=== PATIENT | female | born 1940 | race Caucasian/White ===

== ENCOUNTER 2017-07-28 09:45 | Inpatient (IN) ==
[2017-07-28] MEDS ORDERED: GLUCAGON 1 MG VIAL IM PRN (09:52)
[2017-07-28] MEDS ORDERED: ONDANSETRON 4 MG/2 ML VIAL IV PRN (09:52)
[2017-07-28] MEDS ORDERED: ACETAMINOPHEN 325 MG TABLET PO PRN (09:52)
[2017-07-28] MEDS ORDERED: DEXTROSE 50% 25 GM/50 ML SYRINGE IV PRN (09:52)
--- NOTE | 2017-07-28 09:58 | Internal Med History&Physical ---
Assessment and Plan (1) Palpitation Status: Acute Assessment and plan: 77-year-old female admitted to acute care * Palpitations and chest discomfort. Patient symptoms are atypical with questionable chest discomfort. She does have multiple risk factors and has family history of heart disease. She will be admitted and will do serial cardiac enzymes and EKGs. Her EKG in the office was sinus tachycardia. Will consult cardiology to evaluate. She has history of hypothyroidism but her thyroid function has been normal until recently. Will check TSH and free T4. Will give her an aspirin and start her on Lovenox * Hypertension. Blood pressure is high today. We will continue her medication * Diabetes. Will hold her metformin. * 3 of sinus tachycardia. Patient has not missed her Toprol or Cardizem. * Hyperlipidemia. Continue pravastatin * Recent sinusitis. This has improved on Z-Kristofer and Flonase along with Claritin * History of GERD. Continue omeprazole Current Visit: Yes (2) Chest discomfort Status: Acute Current Visit: Yes (3) Hyperthyroidism Status: Acute Current Visit: Yes History of Present Illness Chief complaint: Palpitations and chest and neck pressure History of present illness: Ms. Byers is a 77 year old female with history of hypertension, diabetes, sinus tachycardia, hypothyroidism in the past who presented to the office not feeling well for couple of days. She initially had a sinus infection and was started on Z-Kristofer and Flonase. For past 2 days she has noticed that she is increasingly short of breath and has felt her heart racing with palpitations. She has had a choking sensation in the lower neck and upper chest. She also has felt pressure. She denies any chest pain. She denies any nausea or vomiting. She has dyspnea on exertion and could not walk more than a few steps before getting short of breath. She denies taking any over the counter medications including decongestants. Patient has no history of smoking or alcohol use Home Medications Medication Instructions Recorded Confirmed Type Furosemide Tab [Lasix Tab] 40 mg PO DAILY 10/05/15 07/28/17 History Losartan Potassium 100 mg PO DAILY 10/05/15 07/28/17 History Metoprolol Succinate Xl [Toprol Xl] 100 mg PO BID 10/05/15 07/28/17 History Omeprazole 20 mg PO BID 10/05/15 07/28/17 History Pravastatin [Pravachol] 80 mg PO DAILY 10/05/15 07/28/17 History Propylthiouracil 50 mg PO BID 10/05/15 07/28/17 History Raloxifene HCl 60 mg PO DAILY 10/05/15 07/28/17 History metFORMIN [Glucophage] 500 mg PO BID W/MEALS 10/05/15 07/28/17 History Diltiazem Cd Cap [Cardizem CD] 120 mg PO DAILY 07/28/17 07/28/17 History Meclizine [Antivert] 25 mg PO Q4-6H PRN 07/28/17 07/28/17 History Potassium Chloride [Klor-Con 10] 40 meq PO TID 07/28/17 07/28/17 History Slow-Mag With Calcium 64-106 1 tablet PO DAILY 07/28/17 07/28/17 History Allergies Allergy/AdvReac Type Severity Reaction Status Date / Time codeine Allergy Mild Nausea, Verified 10/05/15 15:24 HALLUCINATIONS Medical,Surgical,& Family Hx - Medical History Cardio: History of: Cardiac Dysrhythmia (Sinus tachycardia), Hypertension Endocrine: History of: Diabetes Mellitus (NIDDM), Dyslipidemia, Thyroid Disorder (Hypothyroidism) Gastrointestinal: History of: GERD (History of esophageal stricture) - Surgical History HEENT Surgeries: Surgical HX of: Eye Surgery (Bilateral cataract surgery) - Family History Family History: Reports;: Family Heart Disease, Family Hypertension (Brother) - Social History Smoking Status: Never smoker Type of Drug Use: None Marital Status: Single Lives With:: Alone Functional capacity: independent ambulation 12 point system: reviewed and no additional remarkable complaints except as stated (As mentioned in HPI) Exam - Constitutional Exam: Examination: GENERAL: NAD. HEENT: PERRLA. EOMI. Mucous membranes are moist. NECK: Neck is supple. No JVD. No carotid bruit. No thyromegaly. CVS: Patient is tachycardic. S1 and S2 are normal RESPIRATORY: Lungs are clear. No rales or rhonchi. ABDOMEN: Soft and nontender. Bowel sounds are present. No hepatosplenomegaly. EXT: No edema. Peripheral pulses are present. 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 Cranial nerves II through XII are grossly intact. Motor strength is 5 over 5 both upper and lower extremities. SKIN: Warm and dry. MSK: No obvious deformity. Results - Labs CBC & BMP: 07/28/17 12:32 Lab Results: I have reviewed the past 24 hour labs
--- NOTE | 2017-07-28 10:51 | Order Completion Report ---
See report scanned to EMR
--- NOTE | 2017-07-28 10:54 | XRay Report ---
2 view chest 07/28/2017 1045 AM Indication: Shortness of breath Comparison: October 05, 2015 Findings: Cardiomediastinal contours are stable with plaquing along the arch. Lungs are clear bilaterally. . No acute osseous abnormalities. Visualized upper abdomen demonstrates no acute pathology. Impression: No acute cardiopulmonary findings PROCEDURE INTERPRETED AT [facility] DEPARTMENT OF RADIOLOGY Final Report Signed by: Edith Reeves MD
[2017-07-28] MEDS ORDERED: MECLIZINE 25 MG TABLET PO PRN (12:07)
[2017-07-28 13:05] LABS: Basophils % 0.4 % (0.0-0.8); Eosinophils # 0.1 10*3/uL (0.0-0.87); Eosinophils % 0.5 % (0.00-10.9); Hematocrit 40.7 VOL% (35.7-47.0); Hemoglobin 13.3 GM/DL (12.0-16.0); Immature Granulocytes % 0.5 %; Immature Granulocytes Absolute 0.05 #; Lymphocytes # 2.5 10*3/uL (1.4-4.0); Lymphocytes % 25.7 % (21.3-54.2); Mean Corpuscular HGB Conc 32.7 GM/DL (32-36); Mean Corpuscular Hemoglobin 29 PG (27-34); Mean Corpuscular Volume 88.9 FL (87-102); Mean Platelet Volume 10.5 FL (9.6-12.0); Monocytes # 0.5 10*3/uL (0.11-0.8); Monocytes % 5.3 % (1.7-12.7); Neutrophils # 6.4 10*3/uL (1.4-7.4); Neutrophils % 67.6 % (38.7-73.9); Platelet Count 358 T/CUMM (130-400); Red Blood Count 4.58 MC/CUMM (3.8-5.5); Red Cell Distribution Width 13.8 % (9.3-17.3); White Blood Count 9.5 T/CUMM (4-12)
[2017-07-28 13:31] LABS: Alanine Aminotransferase 15 U/L (13-56); Albumin 3.4 G/DL (3.4-5.0); Alkaline Phosphatase 34 U/L (45-117); Aspartate Amino Transferase 26 U/L (0-37); Bilirubin,Total < 0.39 MG/DL (0.2-1.0); Blood Urea Nitrogen 16 MG/DL (7-18); Calcium 9.5 MG/DL (8.5-10.1); Glucose 101 MG/DL (74-106); Osmolality,Calculated 286.8 MOS/KG (273-304); Sodium 144 MMOL/L (136-145); Total Protein 6.8 G/DL (6.4-8.3)
[2017-07-28 13:33] LABS: Troponin I Only < 0.015 NG/ML (0.00-0.045)
--- NOTE | 2017-07-28 13:33 | Cardiology Consult Note ---
<Anisha Panchal - Last Filed: 07/28/17 13:54> Assessment and Plan - Time spent with patient Time spent with patient: Greater than 30 minutes (1) Sinus tachycardia Status: Acute Assessment and plan: SEE PLAN OF CARE LISTED BELOW. Current Visit: Yes (2) Palpitation Status: Acute Assessment and plan: SEE PLAN OF CARE LISTED BELOW. Current Visit: Yes (3) Hyperlipidemia Status: Chronic Assessment and plan: SEE PLAN OF CARE LISTED BELOW. Current Visit: Yes (4) PAC (premature atrial contraction) Status: Chronic Assessment and plan: SEE PLAN OF CARE LISTED BELOW. Current Visit: Yes (5) Chest discomfort Status: Acute Assessment and plan: SEE PLAN OF CARE LISTED BELOW. Current Visit: Yes (6) Hyperthyroidism Status: Chronic Assessment and plan: SEE PLAN OF CARE LISTED BELOW. Current Visit: Yes (7) HTN (hypertension) Status: Chronic Assessment and plan: SEE PLAN OF CARE LISTED BELOW. Current Visit: Yes (8) Type 2 diabetes mellitus Status: Chronic Assessment and plan: SEE PLAN OF CARE LISTED BELOW. 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 Bess Ms. Byers is a 77 year old female without known history of coronary artery disease, not routinely followed by cardiology. Cardiac risk factors significant for: Advanced age, diabetes, hyperlipidemia, sedentary lifestyle and family history of CAD (mother, father and brother). Lifetime non-smoker. Patient has a past medical history that includes: Sinus tachycardia, palpitations, hyperthyroidism and GERD. Patient has seen Dr. Moran in the remote past and has undergone workup for palpitations. Holter monitor was done in April 2016. At that time she was noted to be mostly in normal sinus rhythm. No bradycardia was noted. Some sinus tachycardia with heart rates as high as 135. Rare PVCs and PACs. She also had nuclear cardiac stress test December 2014 which was normal. Normal to hyperdynamic LV systolic function with EF estimated to be greater than 70%. Denies ever undergoing heart catheterization. 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 Patient was directly admitted to [facility] today after being seen by Dr. Bess in clinic. Patient reports while waiting for Dr. Bess to come in the room to examine her she began experiencing dizziness, weakness, fatigue and lightheadedness. Denies heart racing/palpitations. She reports that she just felt that she needed to sit down or she was going to pass out. Thankfully, she never passed out. She did have associated shortness of breath and mild chest pressure. Her chest pressure was midsternal. No associated diaphoresis or nausea. Nonradiating. No exertional component. Patient reports when Dr. Bess came in he got an EKG and it revealed that her heart rate was in the 130s. This EKG has been scanned into [facility] and it appears that she was in sinus tachycardia. She reports that this is the first time of this there happened. She has not been experiencing chest pain or shortness of breath prior to today. She continues to clean her home on a regular basis. She can vacuum her whole house and mop without experiencing shortness of breath , dyspnea on exertion or chest pain, heaviness or tightness. She has not experienced any change in her exercise tolerance. She denies any recent fever, chills, cough, nausea, vomiting, abdominal pain, heart racing/palpitations, lower extremity swelling, orthopnea and PND. Patient has been directly admitted under family medicine's service. Cardiology was consulted to further assist with patient's symptomatology. Patient was seen and examined on the telemetry unit. She is feeling much better. No longer feeling lightheaded, weak or fatigued. Denies chest pain, pressure, heaviness or tightness. Cardiac biomarkers have been negative thus far. EKG is without ischemic changes. Reveals sinus tachycardia with PACs. I suspect that this is related to patient's sinus tachycardia she was experiencing heart rates in the 130s. Cardiac biomarkers negative thus far. EKG without ischemic changes. I will order echocardiogram. We will continue to cycle cardiac biomarkers and EKGs. Continue aspirin, beta blockade and lipid -lowering agent. Patient is now in normal sinus rhythm with heart rates in the 90s. Thyroid studies normal. Electrolytes within acceptable range. I will add magnesium to her lab draw. She is now in normal sinus rhythm with heart rates in the 90s. Continue beta-blockade. I will increase her calcium channel ginna. I will further discuss with Dr. York and await his additional recommendations. IMPRESSION AND PLAN: 1. PALPITATIONS/SINUS TACHYCARDIA - EKG reveals sinus tachycardia with PACs. Patient was worked up for this with Holter monitor April 2016 revealed some sinus tachycardia with heart rates as high as 135. Thyroid studies normal. Electrolytes within acceptable range. I will add magnesium to her lab draw. She is now in normal sinus rhythm with heart rates in the 90s. Continue beta- blockade. I will increase her calcium channel ginna. Will observe on playground monitor for overt arrhythmias. Could consider event monitor at discharge. I will further discuss with Dr. York and await his additional recommendations. 2. CHEST PRESSURE - I suspect that this is related to patient's sinus tachycardia she was experiencing heart rates in the 130s. Cardiac biomarkers negative thus far. EKG without ischemic changes. I will order echocardiogram. We will continue to cycle cardiac biomarkers and EKGs. Continue aspirin, beta blockade and lipid-lowering agent. I will further discuss with Dr. York and await his additional recommendations. 3. DIABETES - Management per attending. 4. HYPERLIPIDEMIA - Continue lipid-lowering agent. Lipid panel in the morning. 5. HYPERTHYROIDISM - Thyroid studies reviewed. Within normal limits. Defer management to attending. 6. GERD - Continue PPI. 7. HYPERTENSION - Suboptimally controlled. I have increased her calcium channel ginna as this will also assist in her sinus tachycardia. CC: Herbie Bess MD - Home Medications and Allergies Home Medications: Home Medications Medication Instructions Recorded Confirmed Type Furosemide Tab [Lasix Tab] 40 mg PO DAILY 10/05/15 07/28/17 History Losartan Potassium 100 mg PO DAILY 10/05/15 07/28/17 History Metoprolol Succinate Xl [Toprol Xl] 100 mg PO BID 10/05/15 07/28/17 History Omeprazole 20 mg PO BID 10/05/15 07/28/17 History Pravastatin [Pravachol] 80 mg PO DAILY 10/05/15 07/28/17 History Propylthiouracil 50 mg PO BID 10/05/15 07/28/17 History Raloxifene HCl 60 mg PO DAILY 10/05/15 07/28/17 History metFORMIN [Glucophage] 500 mg PO BID W/MEALS 10/05/15 07/28/17 History Diltiazem Cd Cap [Cardizem CD] 120 mg PO DAILY 07/28/17 07/28/17 History Meclizine [Antivert] 25 mg PO Q4-6H PRN 07/28/17 07/28/17 History Potassium Chloride [Klor-Con 10] 40 meq PO TID 07/28/17 07/28/17 History Slow-Mag With Calcium 64-106 1 tablet PO DAILY 07/28/17 07/28/17 History Allergies/Adverse Reactions: Allergies Allergy/AdvReac Type Severity Reaction Status Date / Time codeine Allergy Mild Nausea, Verified 10/05/15 15:24 HALLUCINATIONS - Constitutional Constitutional: Present: as per HPI, fatigue, lethargy, malaise, weakness. Absent: chills, excessive sweating, fever(s), headache(s), weight gain, weight loss - Cardiovascular Cardiovascular: Present: as per HPI, dyspnea, lightheadedness, other (Chest pressure). Absent: claudication, diaphoresis, dyspnea on exertion, edema, radiating jaw, neck or arm pain, orthopnea, palpitations, PND - Respiratory Respiratory: Present: as per HPI, dyspnea. Absent: cough, hemoptysis, dyspnea on exertion, wheezing, snoring, pain on inspiration, change in phlegm color - Gastrointestinal Gastrointestinal: Present: as per HPI. Absent: abdominal pain, change in bowel habits, coffee ground emesis, hematemesis, hematochezia, melena, nausea, vomiting - Psychiatric Psychiatric: Present: as per HPI. Absent: anxiety, depression, panic attacks - Hematologic/Lymphatic Hematologic/Lymphatic: Present: as per HPI. Absent: easy bleeding, easy bruising, lymphadenopathy Medical,Surgical,& Family Hx - Medical History Cardio: History of: Hypertension, Cardiovascular Problems (Sinus tach) Endocrine: History of: Diabetes Mellitus (NIDDM), Dyslipidemia, Thyroid Disorder (Hyperthyroidism) Gastrointestinal: History of: GERD (History of esophageal stricture) Musculoskeletal: History of: Osteoporosis - Surgical History HEENT Surgeries: Surgical HX of: Eye Surgery (Bilateral cataract surgery) - Family History Family History: Reports;: Family Heart Disease, Family Hypertension (Brother) - Social History Smoking Status: Never smoker Type of Drug Use: None Functional capacity: independent ambulation Physical Examination Vital Signs Pulse Resp BP Pulse Ox 108 H 18 161/85 93 L 07/28/17 11:07 07/28/17 11:07 07/28/17 11:07/28/17 11:07 Exam: General: Appears well with no apparent distress. Pleasant and cooperative. Appears comfortable. HEENT: PERRL, normocephalic, atraumatic. Mucous membranes moist. No jaundice noted. Conjunctiva moist and clear, sclerae anicteric Neck: No JVD/HJR, no thyromegaly or lymphadenopathy noted. No carotid bruit appreciated Cardiac: Regular rate and rhythm. No murmur rub or gallop. Lungs: Clear to auscultation without accessory muscle use to assist the respiratory pattern. Not requiring oxygen. Abdomen: Soft, bowel sounds normoactive. Nontender and nondistended. No abdominal bruit or thrill noted. No masses noted. Extremities: No clubbing, cyanosis noted. No edema noted. Upper extremity pulses 2+. Lower extremity pulses 2+. Capillary refill less than 3 seconds. Skin: No unusual lesions or rashes. No skin breakdown appreciated. Neuro: Awake, alert and oriented 3. Moves all extremities well without hemiparesis or paralysis. No essential tremor is appreciated. Result/EKG - Labs CBC & BMP: 07/28/17 12:32 07/28/17 12:31 Lab Results: I have reviewed the past 24 hour labs Labs: Laboratory Results - last 24 hr 07/28/17 07/28/17 11:51 12:32 WBC 9.5 RBC 4.58 Hgb 13.3 Hct 40.7 MCV 88.9 MCH 29 MCHC 32.7 RDW 13.8 Plt Count 358 MPV 10.5 Neut % (Auto) 67.6 Lymph % (Auto) 25.7 [place] % (Auto) 5.3 Eos % (Auto) 0.5 Baso % (Auto) 0.4 Neut # (Auto) 6.4 Lymph # (Auto) 2.5 [place] # (Auto) 0.5 Eos # (Auto) 0.1 Baso # (Auto) 0.0 Immature Gran % 0.5 Nucleated RBC % 0.0 Immature Gran # 0.05 Nucleated RBCs # 0.00 Immature Plt Fraction 0.0 POC Glucose 116 H - EKG EKG results: interpreted by me, sinus rhythm EKG shows: tachycardia (PACs) <Graham York - Last Filed: 07/28/17 17:59> History of Present Illness - Consult Narrative History of present illness: Patient personally interviewed and examined by me and chart reviewed. Discussed this patient's case with Anisha Panchal BINGO USHER. I agree with the evaluation assessment and plans. Ms. Byers is a 77 year old female has a history of sinus tachycardia previously been to the right stent today. She states she done well up until today. Her rhythm certainly looks sinus. Is better now. She is on a significant dose of metoprolol succinate. We have increased her diltiazem. I think if her diltiazem with the beta-ginna does not work certainly in the addition of by systolic with the metoprolol may manage her brace and may very well be able to shift to a different beta-ginna. She has a Mountain Dew at her bedside today and I warned her about the caffeine especially high caffeinated products such as this. He states at home she just buying drinks tea no coffee. She is a little evasive about soft drinks though. I get the impression she does not really consume soft rates that much at home. She was taking something specifically nasal spray for sinus congestion issues recently but denies any decongestant use. The patient's echocardiogram is really unremarkable with ejection fraction 50-55 %. Her cardiac enzymes or normal. Her ECG without acute ischemic changes. At this time we will monitor the patient with medication changes. Further recommendations to follow as needed. CC: Herbie Bess MD Physical Examination Vital Signs Pulse Resp BP Pulse Ox 108 H 18 161/85 93 L 07/28/17 11:07 07/28/17 11:07 07/28/17 11:07 07/28/17 11:07 Result/EKG - Labs CBC & BMP: 07/28/17 12:32 07/28/17 12:31 Labs: Laboratory Results - last 24 hr 07/28/17 07/28/17 07/28/17 11:51 12:30 12:30 WBC RBC Hgb Hct MCV MCH MCHC RDW Plt Count MPV Neut % (Auto) Lymph % (Auto) [place] % (Auto) Eos % (Auto) Baso % (Auto) Neut # (Auto) Lymph # (Auto) [place] # (Auto) Eos # (Auto) Baso # (Auto) Immature Gran % Nucleated RBC % Immature Gran # Nucleated RBCs # Immature Plt Fraction Sodium Potassium Chloride Carbon Dioxide Anion Gap BUN Creatinine GFR Calculation BUN/Creatinine Ratio Glucose POC Glucose 116 H Calculated Osmolality Calcium Magnesium 2.0 Total Bilirubin AST ALT Alkaline Phosphatase Total Creatine Kinase CK-MB (CK-2) Troponin I Total Protein Albumin Globulin Albumin/Globulin Ratio Free T4 0.84 TSH 3rd Generation 1.230 07/28/17 07/28/17 07/28/17 12:31 12:32 12:32 WBC 9.5 RBC 4.58 Hgb 13.3 Hct 40.7 MCV 88.9 MCH 29 MCHC 32.7 RDW 13.8 Plt Count 358 MPV 10.5 Neut % (Auto) 67.6 Lymph % (Auto) 25.7 [place] % (Auto) 5.3 Eos % (Auto) 0.5 Baso % (Auto) 0.4 Neut # (Auto) 6.4 Lymph # (Auto) 2.5 [place] # (Auto) 0.5 Eos # (Auto) 0.1 Baso # (Auto) 0.0 Immature Gran % 0.5 Nucleated RBC % 0.0 Immature Gran # 0.05 Nucleated RBCs # 0.00 Immature Plt Fraction 0.0 Sodium 144 Potassium 5.0 Chloride 109 H Carbon Dioxide 28 Anion Gap 12.0 BUN 16 Creatinine 1.20 H GFR Calculation 43 BUN/Creatinine Ratio 13.00 Glucose 101 POC Glucose Calculated Osmolality 286.8 Calcium 9.5 Magnesium Total Bilirubin < 0.39 AST 26 ALT 15 Alkaline Phosphatase 34 L Total Creatine Kinase 48 CK-MB (CK-2) < 1.0 Troponin I < 0.015 Total Protein 6.8 Albumin 3.4 Globulin 3.4 Albumin/Globulin Ratio 1.0 L Free T4 TSH 3rd Generation 07/28/17 07/28/17 16:31 16:58 WBC RBC Hgb Hct MCV MCH MCHC RDW Plt Count MPV Neut % (Auto) Lymph % (Auto) [place] % (Auto) Eos % (Auto) Baso % (Auto) Neut # (Auto) Lymph # (Auto) [place] # (Auto) Eos # (Auto) Baso # (Auto) Immature Gran % Nucleated RBC % Immature Gran # Nucleated RBCs # Immature Plt Fraction Sodium Potassium Chloride Carbon Dioxide Anion Gap BUN Creatinine GFR Calculation BUN/Creatinine Ratio Glucose POC Glucose 150 H Calculated Osmolality Calcium Magnesium Total Bilirubin AST ALT Alkaline Phosphatase Total Creatine Kinase 46 CK-MB (CK-2) < 1.0 Troponin I < 0.015 Total Protein Albumin Globulin Albumin/Globulin Ratio Free T4 TSH 3rd Generation
[2017-07-28 13:58] LABS: Free T4 (Free Thyroxine) 0.84 NG/DL (0.76-1.46); Thyroid Stimulating Hormone 1.23 uIU/ml (0.358-3.74)
[2017-07-28] MEDS ORDERED: DILTIAZEM 60 MG TABLET PO ONE (14:23)
[2017-07-28] MEDS: ENOXAPARIN 40 MG/0.4 ML SYRINGE SUBCUT SCH (15:30)
[2017-07-28] MEDS: ASPIRIN CHEW 81 MG TABLET PO SCH (15:30)
[2017-07-28] MEDS: POTASSIUM CHLORIDE 10 MEQ TABLET PO SCH ×2 (15:30→21:53)
--- NOTE | 2017-07-28 16:25 | Order Completion Report ---
See report scanned to EMR
[2017-07-28 17:33] LABS: Troponin I Only < 0.015 NG/ML (0.00-0.045)
[2017-07-28] MEDS: SODIUM CHLORIDE 0.45% 1,000 ML IV SCH (18:49)
[2017-07-28] MEDS ORDERED: NON-FORMULARY MEDICATION (Omeprazole [Omeprazole] 20 MG) PO SCH (21:00)
[2017-07-28] MEDS: PROPYLTHIOURACIL 50 MG TABLET PO SCH (21:53)
[2017-07-28] MEDS: METOPROLOL SUCCINATE XL 100 MG TABLET PO SCH (21:53)
[2017-07-28] MEDS: DOCUSATE SODIUM 100 MG CAPSULE PO SCH (21:53)
[2017-07-29] MEDS: SODIUM CHLORIDE 0.45% 1,000 ML IV SCH ×3 (03:53→20:27)
[2017-07-29 05:15] LABS: Basophils # 0.1 10*3/uL (0.0-0.2); Basophils % 0.7 % (0.0-0.8); Eosinophils # 0.2 10*3/uL (0.0-0.87); Eosinophils % 2.5 % (0.00-10.9); Hematocrit 37.8 VOL% (35.7-47.0); Hemoglobin 11.8 GM/DL (12.0-16.0); Immature Granulocytes % 0.3 %; Immature Granulocytes Absolute 0.02 #; Lymphocytes # 3.6 10*3/uL (1.4-4.0); Lymphocytes % 50.1 % (21.3-54.2); Mean Corpuscular HGB Conc 31.2 GM/DL (32-36); Mean Corpuscular Hemoglobin 29 PG (27-34); Mean Corpuscular Volume 94.3 FL (87-102); Mean Platelet Volume 10.8 FL (9.6-12.0); Monocytes # 0.5 10*3/uL (0.11-0.8); Monocytes % 6.9 % (1.7-12.7); Neutrophils # 2.8 10*3/uL (1.4-7.4); Neutrophils % 39.5 % (38.7-73.9); Platelet Count 279 T/CUMM (130-400); Red Blood Count 4.01 MC/CUMM (3.8-5.5); Red Cell Distribution Width 14.1 % (9.3-17.3); White Blood Count 7.1 T/CUMM (4-12)
[2017-07-29 05:58] LABS: Blood Urea Nitrogen 15 MG/DL (7-18); Calcium 8.7 MG/DL (8.5-10.1); Glucose 98 MG/DL (74-106); Osmolality,Calculated 290.6 MOS/KG (273-304); Potassium 5.2 MMOL/L (3.5-5.1); Sodium 146 MMOL/L (136-145); Troponin I Only < 0.015 NG/ML (0.00-0.045)
[2017-07-29 06:23] LABS: Risk Ratio 3.19
--- NOTE | 2017-07-29 06:59 | Family Practice Progress Note ---
Family Practice - PN: Subj Interval history: Patient 77-year-old white female admitted with fatigue and perceived palpitations. She was found to have sinus tachycardia with heart rate around 130 bpm. Patient still has sinus tachycardia this morning. She states her shortness of breath has resolved and she feels much better this morning. Patient's magnesium and TSH were normal on admission. Her cardiac isoenzymes have been negative thus far. Exam (Progress Note) - Constitutional Vitals: Period Temp Pulse Resp BP Sys/Cisneros Pulse Ox Last 24 Hr 97.3 F-98.8 F 76-108 16-20 140-185/65-96 92-96 Exam: Objective a pleasant white female no acute distress. She is lying flat in bed and has no dyspnea. Cardiovascular: Exam reveals a rapid regular rhythm without murmurs or gallops. Respiratory: Lungs clear to auscultation bilaterally. Abdomen: Abdomen soft and nontender to palpation. Results - Labs CBC & BMP: 07/29/17 04:55 07/29/17 04:55 Lab Results: I have reviewed the past 24 hour labs Assessment and Plan (1) Palpitation Status: Acute Assessment and plan: 07/29/2017: Monitor reveals sinus tachycardia. Her workup is in progress per Current Visit: Yes
[2017-07-29] MEDS: PRAVASTATIN 40 MG TABLET PO SCH (08:49)
[2017-07-29] MEDS: RALOXIFENE 60 MG TABLET PO SCH (08:49)
[2017-07-29] MEDS: DOCUSATE SODIUM 100 MG CAPSULE PO SCH ×2 (08:49→20:21)
[2017-07-29] MEDS: DILTIAZEM CD 240 MG CAPSULE PO SCH (08:49)
--- NOTE | 2017-07-29 08:49 | Order Completion Report ---
See report scanned to EMR
[2017-07-29] MEDS: PANTOPRAZOLE 40 MG TABLET PO SCH (08:50)
[2017-07-29] MEDS: METOPROLOL SUCCINATE XL 100 MG TABLET PO SCH ×2 (08:50→20:21)
[2017-07-29] MEDS: FUROSEMIDE 40 MG TABLET PO SCH (08:50)
[2017-07-29] MEDS: ASPIRIN CHEW 81 MG TABLET PO SCH (08:50)
[2017-07-29] MEDS: PROPYLTHIOURACIL 50 MG TABLET PO SCH ×2 (08:50→20:21)
[2017-07-29] MEDS: POTASSIUM CHLORIDE 10 MEQ TABLET PO SCH (08:53)
[2017-07-29] MEDS: LOSARTAN 50 MG TABLET PO SCH (08:53)
[2017-07-29] MEDS: [UNRECOGNIZED DRUG - OTHER] PO SCH (08:56)
[2017-07-29] MEDS ORDERED: DILTIAZEM CD 120 MG CAPSULE PO SCH (09:00)
--- NOTE | 2017-07-29 09:07 | Cardiology Progress Note ---
Assessment and Plan - Time spent with patient Time spent with patient: (Potassium is up some.) (1) HTN (hypertension) Status: Chronic Assessment and plan: Blood pressure still remains elevated some. She is receiving her diltiazem now and this may help. Not blood pressure medication may need to be adjusted. Current Visit: Yes (2) Sinus tachycardia Status: Acute Assessment and plan: A chronic recurrent issue but this is much better controlled today. Current Visit: Yes (3) Palpitation Status: Acute Assessment and plan: This is resolved. Current Visit: Yes (4) Chest discomfort Status: Acute Assessment and plan: This is resolved. This certainly is not cardiac. EKGs do not reveal ischemic events and her troponins are nondetectable. Prior related more to palpitations and increased heart rate. Current Visit: Yes Cardiology - PN: Subj Interval history: Patient felt much better today. Not having shortness of breath. Her heart rates are little better with holding her ECG of 86 and telemetry this morning reveals heart rate in the 80s. At times she has heart rate in the 90s. We will see how she does today. Her blood pressure is elevated some if she is receiving her diltiazem from may be the first time this morning. We will monitor this. Certainly adjustments may have to be made. She is doing well in the morning though she could go home with follow-up as an outpatient. She has no new complaints today and is that is noticed just feels better in general. Her lab work including her CBC and chemistries are unremarkable. Her potassium is up at 5.2. It was 5.0 yesterday. We may can decrease her potassium intake. Exam (Progress Note) - Constitutional Vitals: Period Temp Pulse Resp BP Sys/Cisneros Pulse Ox Last 24 Hr 97.3 F-98.8 F 76-108 16-20 140-185/65-96 92-96 Exam: General appearance: Alert cooperative no distress. She seems to feel better today. HEENT: Atraumatic and normocephalic. PERRLA. Neck: Supple trachea midline. No JVD or bruits. Lungs: Clear posteriorly and anteriorly bilaterally without rales rhonchi wheezes. Cardiovascular regular rate and rhythm with normal heart rate without murmur gallop or rub on auscultation. Abdomen: Soft nontender with normal bowel sounds. Extremities no clubbing edema. Neurologic alert cooperative without deficits. Psychiatric: Cognitive function is grossly intact. Skin/dermatologic: No gross rashes or abnormalities. Result/EKG - Labs CBC & BMP: 07/29/17 04:55 07/29/17 04:55 Lab Results: I have reviewed the past 24 hour labs Labs: Laboratory Results - last 24 hr 07/28/17 07/28/17 07/28/17 11:51 12:30 12:30 WBC RBC Hgb Hct MCV MCH MCHC RDW Plt Count MPV Neut % (Auto) Lymph % (Auto) [place] % (Auto) Eos % (Auto) Baso % (Auto) Neut # (Auto) Lymph # (Auto) [place] # (Auto) Eos # (Auto) Baso # (Auto) Immature Gran % Nucleated RBC % Immature Gran # Nucleated RBCs # Immature Plt Fraction Sodium Potassium Chloride Carbon Dioxide Anion Gap BUN Creatinine GFR Calculation BUN/Creatinine Ratio Glucose POC Glucose 116 H Calculated Osmolality Calcium Magnesium 2.0 Total Bilirubin AST ALT Alkaline Phosphatase Total Creatine Kinase CK-MB (CK-2) Troponin I Total Protein Albumin Globulin Albumin/Globulin Ratio Triglycerides Cholesterol LDL Cholesterol VLDL Cholesterol HDL Cholesterol Heart Disease Risk Ratio Free T4 0.84 TSH 3rd Generation 1.230 07/28/17 07/28/17 07/28/17 12:31 12:32 12:32 WBC 9.5 RBC 4.58 Hgb 13.3 Hct 40.7 MCV 88.9 MCH 29 MCHC 32.7 RDW 13.8 Plt Count 358 MPV 10.5 Neut % (Auto) 67.6 Lymph % (Auto) 25.7 [place] % (Auto) 5.3 Eos % (Auto) 0.5 Baso % (Auto) 0.4 Neut # (Auto) 6.4 Lymph # (Auto) 2.5 [place] # (Auto) 0.5 Eos # (Auto) 0.1 Baso # (Auto) 0.0 Immature Gran % 0.5 Nucleated RBC % 0.0 Immature Gran # 0.05 Nucleated RBCs # 0.00 Immature Plt Fraction 0.0 Sodium 144 Potassium 5.0 Chloride 109 H Carbon Dioxide 28 Anion Gap 12.0 BUN 16 Creatinine 1.20 H GFR Calculation 43 BUN/Creatinine Ratio 13.00 Glucose 101 POC Glucose Calculated Osmolality 286.8 Calcium 9.5 Magnesium Total Bilirubin < 0.39 AST 26 ALT 15 Alkaline Phosphatase 34 L Total Creatine Kinase 48 CK-MB (CK-2) < 1.0 Troponin I < 0.015 Total Protein 6.8 Albumin 3.4 Globulin 3.4 Albumin/Globulin Ratio 1.0 L Triglycerides Cholesterol LDL Cholesterol VLDL Cholesterol HDL Cholesterol Heart Disease Risk Ratio Free T4 TSH 3rd Generation 07/28/17 07/28/17 07/28/17 16:31 16:58 19:38 WBC RBC Hgb Hct MCV MCH MCHC RDW Plt Count MPV Neut % (Auto) Lymph % (Auto) [place] % (Auto) Eos % (Auto) Baso % (Auto) Neut # (Auto) Lymph # (Auto) [place] # (Auto) Eos # (Auto) Baso # (Auto) Immature Gran % Nucleated RBC % Immature Gran # Nucleated RBCs # Immature Plt Fraction Sodium Potassium Chloride Carbon Dioxide Anion Gap BUN Creatinine GFR Calculation BUN/Creatinine Ratio Glucose POC Glucose 150 H 188 H Calculated Osmolality Calcium Magnesium Total Bilirubin AST ALT Alkaline Phosphatase Total Creatine Kinase 46 CK-MB (CK-2) < 1.0 Troponin I < 0.015 Total Protein Albumin Globulin Albumin/Globulin Ratio Triglycerides Cholesterol LDL Cholesterol VLDL Cholesterol HDL Cholesterol Heart Disease Risk Ratio Free T4 TSH 3rd Generation 07/29/17 07/29/17 07/29/17 04:55 04:55 04:55 WBC 7.1 RBC 4.01 Hgb 11.8 L Hct 37.8 MCV 94.3 MCH 29 MCHC 31.2 L RDW 14.1 Plt Count 279 D MPV 10.8 Neut % (Auto) 39.5 Lymph % (Auto) 50.1 [place] % (Auto) 6.9 Eos % (Auto) 2.5 Baso % (Auto) 0.7 Neut # (Auto) 2.8 Lymph # (Auto) 3.6 [place] # (Auto) 0.5 Eos # (Auto) 0.2 Baso # (Auto) 0.1 Immature Gran % 0.3 Nucleated RBC % 0.0 Immature Gran # 0.02 Nucleated RBCs # 0.00 Immature Plt Fraction Sodium 146 H Potassium 5.2 H Chloride 113 H Carbon Dioxide 27 Anion Gap 11.2 BUN 15 Creatinine 1.20 H GFR Calculation 43 BUN/Creatinine Ratio 12.00 Glucose 98 POC Glucose Calculated Osmolality 290.6 Calcium 8.7 Magnesium Total Bilirubin AST ALT Alkaline Phosphatase Total Creatine Kinase 54 CK-MB (CK-2) 1.0 Troponin I < 0.015 Total Protein Albumin Globulin Albumin/Globulin Ratio Triglycerides 120 Cholesterol 172 LDL Cholesterol 95.0 VLDL Cholesterol 24.0 HDL Cholesterol 54 Heart Disease Risk Ratio 3.19 Free T4 TSH 3rd Generation 07/29/17 07/29/17 04:55 07:55 WBC RBC Hgb Hct MCV MCH MCHC RDW Plt Count MPV Neut % (Auto) Lymph % (Auto) [place] % (Auto) Eos % (Auto) Baso % (Auto) Neut # (Auto) Lymph # (Auto) [place] # (Auto) Eos # (Auto) Baso # (Auto) Immature Gran % Nucleated RBC % Immature Gran # Nucleated RBCs # Immature Plt Fraction Sodium Potassium Chloride Carbon Dioxide Anion Gap BUN Creatinine GFR Calculation BUN/Creatinine Ratio Glucose POC Glucose 105 Calculated Osmolality Calcium Magnesium 2.1 Total Bilirubin AST ALT Alkaline Phosphatase Total Creatine Kinase CK-MB (CK-2) Troponin I Total Protein Albumin Globulin Albumin/Globulin Ratio Triglycerides Cholesterol LDL Cholesterol VLDL Cholesterol HDL Cholesterol Heart Disease Risk Ratio Free T4 TSH 3rd Generation - Impressions Impressions: ECG was sinus rhythm with a heart rate of 86. Telemetry reveals better heart rate control.
[2017-07-29] MEDS: ENOXAPARIN 40 MG/0.4 ML SYRINGE SUBCUT SCH (14:30)
[2017-07-29] MEDS: POTASSIUM CHLORIDE 20 MEQ TABLET PO SCH (20:21)
[2017-07-30] MEDS: SODIUM CHLORIDE 0.45% 1,000 ML IV SCH (02:29)
[2017-07-30 05:10] LABS: Basophils % 0.5 % (0.0-0.8); Eosinophils # 0.3 10*3/uL (0.0-0.87); Eosinophils % 3.1 % (0.00-10.9); Hematocrit 36.5 VOL% (35.7-47.0); Hemoglobin 11.9 GM/DL (12.0-16.0); Immature Granulocytes % 0.2 %; Immature Granulocytes Absolute 0.02 #; Lymphocytes # 4.1 10*3/uL (1.4-4.0); Lymphocytes % 48.1 % (21.3-54.2); Mean Corpuscular HGB Conc 32.6 GM/DL (32-36); Mean Corpuscular Hemoglobin 29 PG (27-34); Mean Corpuscular Volume 88.6 FL (87-102); Mean Platelet Volume 10.3 FL (9.6-12.0); Monocytes # 0.6 10*3/uL (0.11-0.8); Monocytes % 6.9 % (1.7-12.7); Neutrophils # 3.5 10*3/uL (1.4-7.4); Neutrophils % 41.2 % (38.7-73.9); Platelet Count 328 T/CUMM (130-400); Red Blood Count 4.12 MC/CUMM (3.8-5.5); White Blood Count 8.6 T/CUMM (4-12)
[2017-07-30 05:38] LABS: Calcium 8.6 MG/DL (8.5-10.1); Magnesium 1.9 MG/DL (1.8-2.4); Osmolality,Calculated 287.8 MOS/KG (273-304); Potassium 4.3 MMOL/L (3.5-5.1)
--- NOTE | 2017-07-30 07:35 | Discharge Summary ---
Hospital Course - Hospital Course Hospital Course: Patient is having a white female admitted to the hospital with tachycardia. Patient was found to have sinus tachycardia. Cardiac isoenzymes remained negative and her thyroid studies magnesium were normal. She was seen in consultation by cardiology and patient had no further tachycardia. Her medications were amended somewhat and she has had no further tachycardia on the monitor. Patient is feeling back to her normal and we discharged home today to follow-up with cardiology in a week or so. She probably needs a 30 day monitor or a link monitor Diagnosis - Discharge Diagnosis (1) Palpitation Status: Acute Discharge Plan - Discharge Data Disposition: Disch To Home/Self Care Condition at Discharge: Stable Discharge Diet: advance to your usual diet Activity: resume usual activities as tolerated Hygiene: no restrictions Weight Bearing at Discharge: full weight bearing Contact your physician if you experience:: Shortness of breath - Discharge Medications New Aspirin Chew Tab 324 mg PO DAILY tablet Diltiazem Cd Cap [Cardizem CD] 240 mg PO DAILY capsule Acetaminophen Tab [Tylenol Tab] 650 mg PO Q6H PRN tablet PRN Reason: Fever > 100.4 Or Headache Continue Propylthiouracil 50 mg PO BID Metoprolol Succinate Xl [Toprol Xl] 100 mg PO BID metFORMIN [Glucophage] 500 mg PO BID W/MEALS Pravastatin [Pravachol] 80 mg PO DAILY Omeprazole 20 mg PO BID Losartan Potassium 100 mg PO DAILY Furosemide Tab [Lasix Tab] 40 mg PO DAILY Raloxifene HCl 60 mg PO DAILY Potassium Chloride [Klor-Con 10] 40 meq PO TID Slow-Mag With Calcium 64-106 1 tablet PO DAILY Meclizine [Antivert] 25 mg PO Q4-6H PRN PRN Reason: Dizziness Discontinued Diltiazem Cd Cap [Cardizem CD] 120 mg PO DAILY - Follow Up or Referral Follow Up: Herbie Bess MD [Primary Care Provider] - 2 Weeks - Forms/Instructions Exam - Constitutional Vitals: Period Temp Pulse Resp BP Sys/Cisneros Pulse Ox Last 24 Hr 97.5 F-98.7 F 70-85 16-18 129-181/59-93 94-98 Exam: Objective a pleasant white female no acute distress. She is lying flat in bed and has no dyspnea. Patient is in normal sinus rhythm on the monitor Cardiovascular: Exam reveals a rapid regular rhythm without murmurs or gallops. Respiratory: Lungs clear to auscultation bilaterally. Abdomen: Abdomen soft and nontender to palpation. Discharge Results Procedures and tests throughout hospitalization: Pending Orders 07/31/17 04:00 BMP w/ Mg [Basic Metabolic Panel w/Mg] IN AM CBC [Comp Blood Count Auto Diff] IN AM Labs on day of discharge: Labs from last 24 hours 07/30/17 07/30/17 07/29/17 04:48 04:48 19:18 WBC 8.6 RBC 4.12 Hgb 11.9 L Hct 36.5 MCV 88.6 MCH 29 MCHC 32.6 RDW 14.0 Plt Count 328 MPV 10.3 Neut % (Auto) 41.2 Lymph % (Auto) 48.1 [place] % (Auto) 6.9 Eos % (Auto) 3.1 Baso % (Auto) 0.5 Neut # (Auto) 3.5 Lymph # (Auto) 4.1 H [place] # (Auto) 0.6 Eos # (Auto) 0.3 Baso # (Auto) 0.0 Immature Gran % 0.2 Nucleated RBC % 0.0 Immature Gran # 0.02 Nucleated RBCs # 0.00 Immature Plt Fraction 0.0 D-Dimer, Quantitative Sodium 144 Potassium 4.3 Chloride 111 H Carbon Dioxide 30 Anion Gap 7.3 BUN 18 Creatinine 1.30 H GFR Calculation 40 BUN/Creatinine Ratio 13.00 Glucose 100 POC Glucose 194 H Calculated Osmolality 287.8 Calcium 8.6 Magnesium 1.9 07/29/17 07/29/17 07/29/17 17:11 12:07 08:56 WBC RBC Hgb Hct MCV MCH MCHC RDW Plt Count MPV Neut % (Auto) Lymph % (Auto) [place] % (Auto) Eos % (Auto) Baso % (Auto) Neut # (Auto) Lymph # (Auto) [place] # (Auto) Eos # (Auto) Baso # (Auto) Immature Gran % Nucleated RBC % Immature Gran # Nucleated RBCs # Immature Plt Fraction D-Dimer, Quantitative <= 0.5 Sodium Potassium Chloride Carbon Dioxide Anion Gap BUN Creatinine GFR Calculation BUN/Creatinine Ratio Glucose POC Glucose 190 H 124 H Calculated Osmolality Calcium Magnesium 07/29/17 07:55 WBC RBC Hgb Hct MCV MCH MCHC RDW Plt Count MPV Neut % (Auto) Lymph % (Auto) [place] % (Auto) Eos % (Auto) Baso % (Auto) Neut # (Auto) Lymph # (Auto) [place] # (Auto) Eos # (Auto) Baso # (Auto) Immature Gran % Nucleated RBC % Immature Gran # Nucleated RBCs # Immature Plt Fraction D-Dimer, Quantitative Sodium Potassium Chloride Carbon Dioxide Anion Gap BUN Creatinine GFR Calculation BUN/Creatinine Ratio Glucose POC Glucose 105 Calculated Osmolality Calcium Magnesium Laboratory studies on 07/30/2017 are unremarkable. DS: Provider Date of admission: 07/28/17 09:52 Primary care physician: Herbie Bess MD Attending physician on admission: Herbie Bess MD Consults: 07/28/17 09:52 Consult to Case Mgmt/Social Srvs [CONS] Routine Reason for Case Mgmt/Social Srvs: Discharge Planning 07/28/17 09:57 Consult to Physician [CONS] Routine Comment: Palpitations and chest pressure Consulting Provider: Cardiology - [facility] Consult to Specialist Group: Cardiology Person Notified: Gail Date Notified: 07/28/17 Time Notified: 11:05 07/28/17 11:12 Consult to Pastoral Services [CONS] Routine Comment: Pastoral Screen: Request [employer] Visit Pastoral Screen Source of Request: Patient Discharging clinician: Fermín Gomez MD Expected date of discharge: 07/30/17
--- NOTE | 2017-07-30 07:51 | Order Completion Report ---
See report scanned to EMR
[2017-07-30 08:37] VITALS: BP 153/74
[2017-07-30] MEDS: LOSARTAN 50 MG TABLET PO SCH (08:53)
[2017-07-30] MEDS: RALOXIFENE 60 MG TABLET PO SCH (08:54)
[2017-07-30] MEDS: POTASSIUM CHLORIDE 20 MEQ TABLET PO SCH (08:54)
[2017-07-30] MEDS: ASPIRIN CHEW 81 MG TABLET PO SCH (08:54)
[2017-07-30] MEDS: DOCUSATE SODIUM 100 MG CAPSULE PO SCH (08:54)
[2017-07-30] MEDS: DILTIAZEM CD 240 MG CAPSULE PO SCH (08:54)
[2017-07-30] MEDS: PANTOPRAZOLE 40 MG TABLET PO SCH (08:54)
[2017-07-30] MEDS: PROPYLTHIOURACIL 50 MG TABLET PO SCH (08:54)
[2017-07-30] MEDS: PRAVASTATIN 40 MG TABLET PO SCH (08:54)
[2017-07-30] MEDS: METOPROLOL SUCCINATE XL 100 MG TABLET PO SCH (08:54)
[2017-07-30] MEDS: FUROSEMIDE 40 MG TABLET PO SCH (08:54)
[2017-07-30] MEDS: [UNRECOGNIZED DRUG - OTHER] PO SCH (08:55)
== END 2017-07-30 10:15 | disposition home or self-care (01) | DRG 310 ==
LOC: N.TELEN 10:18
PROVIDERS: ADMIT Internal Medicine; ATTEND Internal Medicine

== ENCOUNTER 2019-01-03 16:40 | Inpatient (IN) ==
[2019-01-03] MEDS ORDERED: PANTOPRAZOLE 40 MG VIAL IV STA (17:07)
[2019-01-03] MEDS ORDERED: ONDANSETRON 4 MG/2 ML VIAL IV STA (17:07)
[2019-01-03] MEDS ORDERED: LOPERAMIDE 2 MG CAPSULE PO STA (17:07)
[2019-01-03] MEDS ORDERED: METOCLOPRAMIDE 10 MG/2 ML VIAL IV STA (17:07)
[2019-01-03] MEDS ORDERED: SODIUM CHLORIDE 0.9% 1,000 ML IV STA (17:07)
[2019-01-03 18:13] LABS: Basophils # 0.1 10*3/uL (0.0-0.2); Basophils % 0.4 % (0.0-0.8); Eosinophils # 0.1 10*3/uL (0.0-0.87); Eosinophils % 0.6 % (0.00-10.9); Hematocrit 43.7 VOL% (35.7-47.0); Hemoglobin 13.3 GM/DL (12.0-16.0); Immature Granulocytes % 1.3 %; Immature Granulocytes Absolute 0.22 #; Lymphocytes # 3.2 10*3/uL (1.4-4.0); Lymphocytes % 18.5 % (21.3-54.2); Mean Corpuscular HGB Conc 30.4 GM/DL (32-36); Mean Corpuscular Hemoglobin 28 PG (27-34); Mean Corpuscular Volume 92.2 FL (87-102); Monocytes # 0.7 10*3/uL (0.11-0.8); Monocytes % 4.1 % (1.7-12.7); Neutrophils # 12.8 10*3/uL (1.4-7.4); Neutrophils % 75.1 % (38.7-73.9); Platelet Count 341 T/CUMM (130-400); Red Blood Count 4.74 MC/CUMM (3.8-5.5); Red Cell Distribution Width 13.9 % (9.3-17.3); White Blood Count 17.1 T/CUMM (4-12)
[2019-01-03] MEDS ORDERED: ATROPINE 1 MG/10 ML SYRINGE ONE (18:15)
[2019-01-03] MEDS ORDERED: ATROPINE 1 MG/10 ML SYRINGE IV STA (18:15)
[2019-01-03 18:38] LABS: Alanine Aminotransferase 24 U/L (13-56); Albumin 2.9 G/DL (3.4-5.0); Alkaline Phosphatase 33 U/L (45-117); Aspartate Amino Transferase 31 U/L (0-37); Bilirubin,Total < 0.39 MG/DL (0.2-1.0); Blood Urea Nitrogen 17 MG/DL (7-18); Calcium 8.9 MG/DL (8.5-10.1); Glucose 301 MG/DL (74-106); Osmolality,Calculated 291.4 MOS/KG (273-304); Potassium 5.3 MMOL/L (3.5-5.1); Sodium 140 MMOL/L (136-145); Total Protein 7.1 G/DL (6.4-8.3); Troponin I < 0.015 NG/ML (0.00-0.045)
[2019-01-03 19:57] LABS: Apearance,Urine CLOUDY (Clear); Bacteria,Urine Many /HPF (Few); Bilirubin,Urine Negative (Negative); Blood, Urine Small mg/dL (Negative); Glucose,Urine (UA) 150 mg/dL (Negative); Ketones,Urine Negative (Negative); Mucus,Urine Occasional /LPF (Occasional); Nitrite,Urine Negative (Negative); Protein,Urine 100 MG/DL; Squamous Epithelial Cell,Urine Occasional /HPF (0-10); Urine Specific Gravity 1.012 (1.001-1.035); Urine Urobilinogen < 2.0 EU/DL (0.2-1.0)
[2019-01-03 19:58] LABS: Urine Color Yellow (Yellow)
[2019-01-03] MEDS ORDERED: ONDANSETRON 4 MG/2 ML VIAL IV PRN (20:28)
[2019-01-03] MEDS: SODIUM CHLORIDE 0.45% 1,000 ML IV SCH (21:24)
[2019-01-03] MEDS ORDERED: LEVOFLOXACIN INJ 750 MG in PREMIX 1 EACH IV ONE (21:30)
[2019-01-03] MEDS ORDERED: ACETAMINOPHEN 325 MG TABLET PO PRN (23:10)
[2019-01-03] MEDS ORDERED: MECLIZINE 25 MG TABLET PO PRN (23:10)
[2019-01-03] MEDS ORDERED: GLUCAGON 1 MG VIAL IM PRN (23:16)
[2019-01-03] MEDS ORDERED: DEXTROSE 50% 25 GM/50 ML SYRINGE IV PRN (23:16)
[2019-01-04 04:15] LABS: Basophils % 0.2 % (0.0-0.8); Hemoglobin 11.2 GM/DL (12.0-16.0); Immature Granulocytes % 0.6 %; Immature Granulocytes Absolute 0.07 #; Lymphocytes # 2.4 10*3/uL (1.4-4.0); Lymphocytes % 19.2 % (21.3-54.2); Mean Corpuscular HGB Conc 30.3 GM/DL (32-36); Mean Corpuscular Hemoglobin 28 PG (27-34); Mean Corpuscular Volume 90.7 FL (87-102); Mean Platelet Volume 11.4 FL (9.6-12.0); Monocytes # 0.8 10*3/uL (0.11-0.8); Monocytes % 6.8 % (1.7-12.7); Neutrophils % 73.2 % (38.7-73.9); Platelet Count 243 T/CUMM (130-400); Red Blood Count 4.08 MC/CUMM (3.8-5.5); White Blood Count 12.3 T/CUMM (4-12)
[2019-01-04 04:51] LABS: Blood Urea Nitrogen 20 MG/DL (7-18); Calcium 8.3 MG/DL (8.5-10.1); Glucose 122 MG/DL (74-106); Potassium 4.7 MMOL/L (3.5-5.1); Sodium 143 MMOL/L (136-145); Troponin I < 0.015 NG/ML (0.00-0.045)
[2019-01-04] MEDS: INSULIN REGULAR 100 UNIT/ML SUBCUT SCH ×4 (07:57→20:42)
[2019-01-04] MEDS: ASPIRIN CHEW 81 MG TABLET PO SCH (08:57)
[2019-01-04] MEDS: PROPYLTHIOURACIL 50 MG TABLET PO SCH ×3 (08:57→20:56)
[2019-01-04] MEDS: FUROSEMIDE 20 MG TABLET PO SCH (08:57)
[2019-01-04] MEDS: DILTIAZEM CD 180 MG CAPSULE PO SCH (08:57)
[2019-01-04] MEDS: RALOXIFENE 60 MG TABLET PO SCH (08:57)
[2019-01-04] MEDS: PANTOPRAZOLE 40 MG VIAL IV SCH (08:58)
[2019-01-04] MEDS: CITALOPRAM 20 MG TABLET PO SCH (08:58)
[2019-01-04] MEDS: ROSUVASTATIN 20 MG TABLET PO SCH (08:58)
[2019-01-04] MEDS ORDERED: CHLORIDE PO SCH (09:00)
[2019-01-04] MEDS ORDERED: LOSARTAN 50 MG TABLET PO SCH (09:00)
[2019-01-04] MEDS ORDERED: NON-FORMULARY MEDICATION (Omeprazole [Omeprazole] 20 MG) PO SCH (09:00)
[2019-01-04] MEDS ORDERED: [UNRECOGNIZED DRUG - OTHER] PO SCH (09:00)
[2019-01-04] MEDS ORDERED: MAGNESIUM PO SCH (09:00)
[2019-01-04] MEDS ORDERED: SLOW MAG PO SCH (09:00)
[2019-01-04 09:13] LABS: Basophils % 0.2 % (0.0-0.8); Eosinophils % 0.1 % (0.00-10.9); Hematocrit 38.7 VOL% (35.7-47.0); Hemoglobin 11.9 GM/DL (12.0-16.0); Immature Granulocytes % 0.7 %; Immature Granulocytes Absolute 0.12 #; Lymphocytes # 2.8 10*3/uL (1.4-4.0); Lymphocytes % 16.6 % (21.3-54.2); Mean Corpuscular HGB Conc 30.7 GM/DL (32-36); Mean Corpuscular Hemoglobin 28 PG (27-34); Mean Corpuscular Volume 90.4 FL (87-102); Mean Platelet Volume 10.5 FL (9.6-12.0); Monocytes # 1.1 10*3/uL (0.11-0.8); Monocytes % 6.5 % (1.7-12.7); Neutrophils # 12.6 10*3/uL (1.4-7.4); Neutrophils % 75.9 % (38.7-73.9); Platelet Count 273 T/CUMM (130-400); Red Blood Count 4.28 MC/CUMM (3.8-5.5); Red Cell Distribution Width 14.1 % (9.3-17.3); White Blood Count 16.7 T/CUMM (4-12)
[2019-01-04 09:38] LABS: Calcium 8.7 MG/DL (8.5-10.1); Osmolality,Calculated 284.1 MOS/KG (273-304)
[2019-01-04] MEDS: SODIUM CHLORIDE 0.45% 1,000 ML IV SCH (10:45)
[2019-01-05] MEDS: SODIUM CHLORIDE 0.45% 1,000 ML IV SCH (01:31)
[2019-01-05 05:02] LABS: Basophils % 0.3 % (0.0-0.8); Eosinophils % 0.3 % (0.00-10.9); Hematocrit 37.8 VOL% (35.7-47.0); Immature Granulocytes % 0.3 %; Immature Granulocytes Absolute 0.04 #; Lymphocytes # 2.5 10*3/uL (1.4-4.0); Lymphocytes % 22.2 % (21.3-54.2); Mean Corpuscular HGB Conc 31.7 GM/DL (32-36); Mean Corpuscular Hemoglobin 28 PG (27-34); Mean Corpuscular Volume 87.3 FL (87-102); Mean Platelet Volume 11.2 FL (9.6-12.0); Monocytes # 0.8 10*3/uL (0.11-0.8); Monocytes % 7.2 % (1.7-12.7); Neutrophils % 69.7 % (38.7-73.9); Platelet Count 256 T/CUMM (130-400); Red Blood Count 4.33 MC/CUMM (3.8-5.5); White Blood Count 11.5 T/CUMM (4-12)
[2019-01-05 05:18] LABS: Calcium 8.3 MG/DL (8.5-10.1); Osmolality,Calculated 283.1 MOS/KG (273-304); Potassium 3.3 MMOL/L (3.5-5.1)
[2019-01-05] MEDS: INSULIN REGULAR 100 UNIT/ML SUBCUT SCH ×3 (09:01→16:31)
[2019-01-05] MEDS: ASPIRIN CHEW 81 MG TABLET PO SCH (09:02)
[2019-01-05] MEDS: FUROSEMIDE 20 MG TABLET PO SCH (09:02)
[2019-01-05] MEDS: RALOXIFENE 60 MG TABLET PO SCH (09:02)
[2019-01-05] MEDS: ROSUVASTATIN 20 MG TABLET PO SCH (09:02)
[2019-01-05] MEDS: PROPYLTHIOURACIL 50 MG TABLET PO SCH ×3 (09:02→21:36)
[2019-01-05] MEDS: CITALOPRAM 20 MG TABLET PO SCH (09:02)
[2019-01-05] MEDS: DILTIAZEM CD 180 MG CAPSULE PO SCH (09:03)
[2019-01-05] MEDS: PANTOPRAZOLE 40 MG VIAL IV SCH (09:03)
[2019-01-05] MEDS ORDERED: DEXTROSE 50% 25 GM/50 ML VIAL IV PRN (09:13)
[2019-01-05] MEDS ORDERED: GLUCAGON 1 MG VIAL IM PRN (09:13)
[2019-01-05] MEDS: POTASSIUM CHLORIDE 20 MEQ TABLET PO PRN ×3 (11:30→16:51)
[2019-01-05] MEDS ORDERED: LEVOFLOXACIN INJ 500 MG in PREMIX 1 EACH IV SCH (21:00)
[2019-01-06] MEDS: INSULIN REGULAR 100 UNIT/ML SUBCUT SCH ×3 (09:08→21:53)
[2019-01-06] MEDS: CITALOPRAM 20 MG TABLET PO SCH (09:09)
[2019-01-06] MEDS: DILTIAZEM CD 180 MG CAPSULE PO SCH (09:09)
[2019-01-06] MEDS: PANTOPRAZOLE 40 MG VIAL IV SCH (09:09)
[2019-01-06] MEDS: ROSUVASTATIN 20 MG TABLET PO SCH (09:10)
[2019-01-06] MEDS: PROPYLTHIOURACIL 50 MG TABLET PO SCH ×3 (09:10→21:51)
[2019-01-06] MEDS: FUROSEMIDE 20 MG TABLET PO SCH (09:10)
[2019-01-06] MEDS: ASPIRIN CHEW 81 MG TABLET PO SCH (09:10)
[2019-01-06] MEDS: RALOXIFENE 60 MG TABLET PO SCH (09:18)
[2019-01-06] MEDS: ATENOLOL 25 MG TABLET PO SCH (11:36)
[2019-01-07 04:54] LABS: Basophils # 0.1 10*3/uL (0.0-0.2); Basophils % 0.5 % (0.0-0.8); Eosinophils # 0.2 10*3/uL (0.0-0.87); Eosinophils % 1.8 % (0.00-10.9); Hematocrit 39.4 VOL% (35.7-47.0); Hemoglobin 12.3 GM/DL (12.0-16.0); Immature Granulocytes % 0.5 %; Immature Granulocytes Absolute 0.05 #; Lymphocytes # 3.1 10*3/uL (1.4-4.0); Lymphocytes % 32.1 % (21.3-54.2); Mean Corpuscular HGB Conc 31.2 GM/DL (32-36); Mean Corpuscular Hemoglobin 28 PG (27-34); Mean Corpuscular Volume 88.1 FL (87-102); Mean Platelet Volume 11.3 FL (9.6-12.0); Monocytes # 0.8 10*3/uL (0.11-0.8); Monocytes % 8.5 % (1.7-12.7); Neutrophils # 5.5 10*3/uL (1.4-7.4); Neutrophils % 56.6 % (38.7-73.9); Platelet Count 252 T/CUMM (130-400); Red Blood Count 4.47 MC/CUMM (3.8-5.5); Red Cell Distribution Width 13.7 % (9.3-17.3); White Blood Count 9.7 T/CUMM (4-12)
[2019-01-07 08:55] LABS: Calcium 8.8 MG/DL (8.5-10.1); Osmolality,Calculated 287.1 MOS/KG (273-304); Potassium 3.6 MMOL/L (3.5-5.1)
[2019-01-07] MEDS: PROPYLTHIOURACIL 50 MG TABLET PO SCH (10:16)
[2019-01-07] MEDS: DILTIAZEM CD 180 MG CAPSULE PO SCH (10:16)
[2019-01-07] MEDS: CITALOPRAM 20 MG TABLET PO SCH (10:17)
[2019-01-07] MEDS: ATENOLOL 25 MG TABLET PO SCH (10:18)
[2019-01-07] MEDS: ROSUVASTATIN 20 MG TABLET PO SCH (10:18)
[2019-01-07] MEDS: FUROSEMIDE 20 MG TABLET PO SCH (10:18)
[2019-01-07] MEDS: RALOXIFENE 60 MG TABLET PO SCH (10:18)
[2019-01-07] MEDS: ASPIRIN CHEW 81 MG TABLET PO SCH (10:18)
[2019-01-07] MEDS: PANTOPRAZOLE 40 MG VIAL IV SCH (10:19)
[2019-01-07] MEDS: POTASSIUM CHLORIDE 20 MEQ TABLET PO PRN (10:28)
[2019-01-07 12:17] VITALS: BP 149/68
[2019-01-07] MEDS: INSULIN REGULAR 100 UNIT/ML SUBCUT SCH (14:20)
== END 2019-01-07 14:45 | disposition swing bed (61) | DRG 309 ==
LOC: N.ED 16:40 → N.EDINP 20:27 → N.CC 21:08 → N.TELEN 01-04 12:42
PROVIDERS: ADMIT Internal Medicine; ATTEND Internal Medicine

== ENCOUNTER 2021-12-27 21:36 | Inpatient (IN) ==
[2021-12-27 21:58] LABS: Basophils # 0.1 10*3/uL (0.0-0.2); Basophils % 0.7 % (0.0-0.8); Eosinophils # 0.1 10*3/uL (0.0-0.87); Eosinophils % 0.8 % (0.00-10.9); Hematocrit 40.4 VOL% (35.7-47.0); Hemoglobin 12.6 GM/DL (12.0-16.0); Immature Granulocytes % 0.8 %; Lymphocytes # 2.8 10*3/uL (1.4-4.0); Lymphocytes % 20.8 % (21.3-54.2); Mean Corpuscular HGB Conc 31.2 GM/DL (32-36); Mean Corpuscular Volume 90.2 FL (87-102); Mean Platelet Volume 11.1 FL (9.6-12.0); Monocytes % 4.5 % (1.7-12.7); Neutrophils % 72.4 % (38.7-73.9); Platelet Count 307 T/CUMM (130-400); Red Blood Count 4.48 MC/CUMM (3.8-5.5); Red Cell Distribution Width 14.6 % (9.3-17.3); White Blood Count 13.3 T/CUMM (4-12)
[2021-12-27 22:25] LABS: Alanine Aminotransferase 28 U/L (13-56); Alkaline Phosphatase 41 U/L (45-117); Aspartate Amino Transferase 38 U/L (0-37); Bilirubin,Total < 0.39 MG/DL (0.20-1.00); Blood Urea Nitrogen 26 MG/DL (7-18); Calcium 8.6 MG/DL (8.5-10.1); Carbon Dioxide 21 MMOL/L (21-32); Estimated Glom Filtration Rate 22 ML/MIN; Glucose 207 MG/DL (74-106); Osmolality,Calculated 287.5 MOS/KG (273-304); Sodium 139 MMOL/L (136-145); Total Protein 6.8 G/DL (6.4-8.2)
[2021-12-27 22:27] LABS: PT Patient Result 11.5 SECS (10.5-12.0); Partial Thromboplastin Time 27.2 SECS (23.8-32.1)
[2021-12-27 22:28] LABS: Potassium 6.1 MMOL/L (3.5-5.1)
[2021-12-27] MEDS ORDERED: INSULIN REGULAR 100 UNIT/ML IV STA (23:02)
[2021-12-27] MEDS ORDERED: SODIUM CHLORIDE 0.9% 1,000 ML IV STA (23:05)
[2021-12-27] MEDS ORDERED: MAGNESIUM CHLORIDE 64 MG TABLET PO STA (23:14)
[2021-12-27] MEDS ORDERED: ACETAMINOPHEN 325 MG TABLET PO PRN (23:14)
[2021-12-27] MEDS ORDERED: ONDANSETRON 4 MG/2 ML VIAL IV PRN (23:14)
[2021-12-27 23:58] LABS: Bacteria,Urine Occasional /HPF (Few); Hyaline Casts,Urine 11 /LPF (0-3); Mucus,Urine Occasional /LPF (Occasional); RBC,Urine 3 /HPF (0-4); Squamous Epithelial Cell,Urine Occasional /HPF (0-10)
[2021-12-28] LABS: Bilirubin,Urine Negative (Negative); Blood, Urine Small mg/dL (Negative); Glucose,Urine (UA) Negative (Negative); Ketones,Urine Negative (Negative); Nitrite,Urine Negative (Negative); Protein,Urine Negative; Urine Appearance Clear (Clear); Urine Color Yellow (Yellow); Urine Urobilinogen 0.2 EU/DL (<2.0)
[2021-12-28] MEDS: SODIUM CHLORIDE 0.9% 1,000 ML IV SCH ×3 (00:11→21:16)
[2021-12-28 02:40] LABS: Basophils # 0.1 10*3/uL (0.0-0.2); Basophils % 0.4 % (0.0-0.8); Eosinophils % 0.1 % (0.00-10.9); Hematocrit 39.9 VOL% (35.7-47.0); Hemoglobin 12.6 GM/DL (12.0-16.0); Immature Granulocytes % 0.7 %; Immature Granulocytes Absolute 0.08 #; Lymphocytes # 2.8 10*3/uL (1.4-4.0); Lymphocytes % 23.7 % (21.3-54.2); Mean Corpuscular HGB Conc 31.6 GM/DL (32-36); Mean Corpuscular Volume 89.1 FL (87-102); Mean Platelet Volume 11.1 FL (9.6-12.0); Monocytes % 4.5 % (1.7-12.7); Neutrophils % 70.6 % (38.7-73.9); Platelet Count 303 T/CUMM (130-400); Red Blood Count 4.48 MC/CUMM (3.8-5.5); Red Cell Distribution Width 14.6 % (9.3-17.3); White Blood Count 11.8 T/CUMM (4-12)
[2021-12-28 02:59] LABS: Alanine Aminotransferase 26 U/L (13-56); Albumin 2.9 G/DL (3.4-5.0); Alkaline Phosphatase 35 U/L (45-117); Aspartate Amino Transferase 31 U/L (0-37); Bilirubin,Total < 0.39 MG/DL (0.20-1.00); Blood Urea Nitrogen 27 MG/DL (7-18); Calcium 8.9 MG/DL (8.5-10.1); Carbon Dioxide 22 MMOL/L (21-32); Estimated Glom Filtration Rate 25 ML/MIN; Glucose 129 MG/DL (74-106); Osmolality,Calculated 283.5 MOS/KG (273-304); Potassium 4.8 MMOL/L (3.5-5.1); Sodium 139 MMOL/L (136-145)
[2021-12-28] MEDS ORDERED: PANTOPRAZOLE 40 MG TABLET PO SCH (09:00)
[2021-12-28] MEDS ORDERED: LOSARTAN 50 MG TABLET PO SCH (09:00)
[2021-12-28] MEDS: CITALOPRAM 20 MG TABLET PO SCH (11:02)
[2021-12-28] MEDS: LOSARTAN 50 MG TABLET PO SCH (11:02)
[2021-12-28] MEDS: RALOXIFENE 60 MG TABLET PO SCH (11:02)
[2021-12-28] MEDS: propylthiouraciL 50 MG TABLET PO SCH ×3 (11:02→21:16)
[2021-12-28] MEDS: MAGNESIUM OXIDE 400 MG TABLET PO SCH (11:03)
[2021-12-28] MEDS: PANTOPRAZOLE 40 MG TABLET PO SCH ×2 (11:03→21:16)
[2021-12-28] MEDS: ASPIRIN CHEW 81 MG TABLET PO SCH (11:03)
[2021-12-28] MEDS: ENOXAPARIN 30 MG/0.3 ML SYRINGE SUBCUT SCH (11:03)
[2021-12-28] MEDS: FUROSEMIDE 20 MG TABLET PO SCH (11:03)
[2021-12-28] MEDS: cefTRIAXone 1,000 MG in SODIUM CHLORIDE 0.9% 100 ML IV SCH (11:15)
[2021-12-28] MEDS ORDERED: LORazepam 2 MG/1 ML VIAL IV ONE ×2 (21:51→22:36)
[2021-12-29 05:20] LABS: Basophils # 0.1 10*3/uL (0.0-0.2); Basophils % 0.8 % (0.0-0.8); Eosinophils # 0.1 10*3/uL (0.0-0.87); Hemoglobin 10.9 GM/DL (12.0-16.0); Immature Granulocytes % 0.4 %; Immature Granulocytes Absolute 0.04 #; Lymphocytes # 3.3 10*3/uL (1.4-4.0); Mean Corpuscular HGB Conc 31.1 GM/DL (32-36); Mean Corpuscular Volume 89.3 FL (87-102); Mean Platelet Volume 11.2 FL (9.6-12.0); Monocytes % 7.7 % (1.7-12.7); Neutrophils % 54.1 % (38.7-73.9); Platelet Count 249 T/CUMM (130-400); Red Blood Count 3.92 MC/CUMM (3.8-5.5); Red Cell Distribution Width 14.7 % (9.3-17.3); White Blood Count 9.1 T/CUMM (4-12)
[2021-12-29 05:35] LABS: Potassium 3.4 MMOL/L (3.5-5.1)
[2021-12-29] MEDS ORDERED: POTASSIUM CHLORIDE 20 MEQ TABLET PO ONE (06:57)
[2021-12-29] MEDS: LOSARTAN 50 MG TABLET PO SCH (11:25)
[2021-12-29] MEDS: RALOXIFENE 60 MG TABLET PO SCH (11:25)
[2021-12-29] MEDS: ASPIRIN CHEW 81 MG TABLET PO SCH (11:25)
[2021-12-29] MEDS: FUROSEMIDE 20 MG TABLET PO SCH (11:26)
[2021-12-29] MEDS: CITALOPRAM 20 MG TABLET PO SCH (11:26)
[2021-12-29] MEDS: PANTOPRAZOLE 40 MG TABLET PO SCH ×2 (11:27→21:03)
[2021-12-29] MEDS: MAGNESIUM OXIDE 400 MG TABLET PO SCH (11:27)
[2021-12-29] MEDS: ENOXAPARIN 30 MG/0.3 ML SYRINGE SUBCUT SCH (11:27)
[2021-12-29] MEDS: cefTRIAXone 1,000 MG in SODIUM CHLORIDE 0.9% 100 ML IV SCH (11:30)
[2021-12-29] MEDS: SODIUM CHLORIDE 0.9% 1,000 ML IV SCH ×2 (11:30→19:29)
[2021-12-30] MEDS: SODIUM CHLORIDE 0.9% 1,000 ML IV SCH (01:14)
[2021-12-30 04:57] LABS: Basophils # 0.1 10*3/uL (0.0-0.2); Basophils % 0.7 % (0.0-0.8); Eosinophils # 0.2 10*3/uL (0.0-0.87); Eosinophils % 2.4 % (0.00-10.9); Hemoglobin 11.6 GM/DL (12.0-16.0); Immature Granulocytes % 0.3 %; Immature Granulocytes Absolute 0.02 #; Lymphocytes # 2.9 10*3/uL (1.4-4.0); Lymphocytes % 38.3 % (21.3-54.2); Mean Corpuscular HGB Conc 31.4 GM/DL (32-36); Mean Corpuscular Volume 88.1 FL (87-102); Mean Platelet Volume 10.9 FL (9.6-12.0); Monocytes % 7.5 % (1.7-12.7); Neutrophils % 50.8 % (38.7-73.9); Platelet Count 252 T/CUMM (130-400); Red Cell Distribution Width 14.6 % (9.3-17.3); White Blood Count 7.4 T/CUMM (4-12)
[2021-12-30 05:19] LABS: Calcium 8.9 MG/DL (8.5-10.1); Osmolality,Calculated 280.1 MOS/KG (273-304)
[2021-12-30] MEDS: PANTOPRAZOLE 40 MG TABLET PO SCH ×2 (09:24→20:54)
[2021-12-30] MEDS: RALOXIFENE 60 MG TABLET PO SCH (09:24)
[2021-12-30] MEDS: ASPIRIN CHEW 81 MG TABLET PO SCH (09:25)
[2021-12-30] MEDS: CITALOPRAM 20 MG TABLET PO SCH (09:25)
[2021-12-30] MEDS: MAGNESIUM OXIDE 400 MG TABLET PO SCH (09:25)
[2021-12-30] MEDS: FUROSEMIDE 20 MG TABLET PO SCH (09:25)
[2021-12-30] MEDS: ENOXAPARIN 30 MG/0.3 ML SYRINGE SUBCUT SCH (09:25)
[2021-12-30] MEDS: LOSARTAN 50 MG TABLET PO SCH (09:29)
[2021-12-30] MEDS: cefTRIAXone 1,000 MG in SODIUM CHLORIDE 0.9% 100 ML IV SCH (09:35)
[2021-12-30] MEDS: atenoloL 25 MG TABLET PO SCH (11:27)
[2021-12-30] MEDS ORDERED: LORazepam 2 MG/1 ML VIAL IV ONE (22:55)
[2021-12-30] MEDS ORDERED: LORazepam 2 MG/1 ML VIAL ONE (22:56)
[2021-12-31] MEDS ORDERED: amLODIPine 5 MG TABLET PO SCH (09:00)
[2021-12-31] MEDS: RALOXIFENE 60 MG TABLET PO SCH (10:18)
[2021-12-31] MEDS: ASPIRIN CHEW 81 MG TABLET PO SCH (10:19)
[2021-12-31] MEDS: CITALOPRAM 20 MG TABLET PO SCH (10:19)
[2021-12-31] MEDS: LOSARTAN 50 MG TABLET PO SCH (10:19)
[2021-12-31] MEDS: MAGNESIUM OXIDE 400 MG TABLET PO SCH (10:19)
[2021-12-31] MEDS: ENOXAPARIN 30 MG/0.3 ML SYRINGE SUBCUT SCH (10:20)
[2021-12-31] MEDS: FUROSEMIDE 20 MG TABLET PO SCH (10:20)
[2021-12-31] MEDS: PANTOPRAZOLE 40 MG TABLET PO SCH (10:20)
[2021-12-31] MEDS: atenoloL 25 MG TABLET PO SCH (10:20)
[2021-12-31] MEDS: cefTRIAXone 1,000 MG in SODIUM CHLORIDE 0.9% 100 ML IV SCH (10:24)
[2021-12-31 11:15] VITALS: BP 166/91
== END 2021-12-31 12:59 | disposition home or self-care (01) | DRG 690 ==
LOC: EDUNIT# → EDBD → N.ED 21:36 → N.EDINP 21:36 → N.TELEN 12-28 00:07
PROVIDERS: ADMIT Internal Medicine; ATTEND Internal Medicine